=== PATIENT | female | born 1945 ===

== ENCOUNTER 2017-02-10 06:51 | Inpatient (IN) | payer MEDICARE ==
[2017-02-10 07:54] LABS: HEMATOCRIT 42.1 % (36.0-48.0); HEMOGLOBIN 14.6 g/dL (12-16); MCH 33.2 pg (26.0-34.0); MCHC 34.7 g/dL (31.0-37.0); MCV 95.7 fL (80.0-100.0); MEAN PLATELET VOLUME 11.3 fL (7.4-10.4); PLATELET COUNT 251 10x3/uL (130-400); RDW 13.4 % (11.5-14.5); WBC 21.2 10x3/uL (4.8-10.8)
[2017-02-10 08:09] LABS: ALBUMIN 3.5 g/dL (3.4-5.0); ANION GAP 14.6 mmol/L (8-16); BILIRUBIN - TOTAL 0.23 mg/dL (0.2-1.3); CALCIUM 8.8 mg/dL (8.5-10.1); CARBON DIOXIDE 23.4 mmol/L (21.0-32.0); CREATININE - SERUM 0.9 mg/dL (0.6-1.3); PROTEIN - SERUM 7.7 g/dL (6.4-8.2)
[2017-02-10 08:12] LABS: ANISOCYTOSIS OCC; EOSINOPHILS 2 % (0-7); LYMPHOCYTES 12 % (15-50); MONOCYTES 6 % (2-11); NEUTROPHILS 68 % (40-80); PLATELET ESTIMATE NORMAL
--- NOTE | 2017-02-10 12:54 | NUR ---
TRANSFER FROM ER BY STRETCHER. OREINTED TO ROOM. CALL LIGHT IN REACH. WILL CONT. PLAN OF CARE.
[2017-02-10 13:35] VITALS: BP 123/70; BMI 20.6
--- NOTE | 2017-02-10 14:17 | NUR ---
RESTS WITH EYES CLOSED. NO S/S DISCOMFORTS NOTED.
[2017-02-10 16:00] VITALS: BP 101/73
--- NOTE | 2017-02-10 19:37 | NUR ---
DR LUU CALLS TO THE FLOOR, REQUESTS THAT WE MOVE PT TO ICU WITH A SUBARACHNOID BLEED. SPOUSE IN ROOM. DR LUU SPEAKS WITH SPOUSE VIA TELEPHONE TO REPORT CT FINDINGS. DR LUU ORDERS TO STOP TORADOL AND LOVENOX. TRANSFER PT TO ICU - BED RECEIVED FROM [facility] ROOM [address]. [address] TOPETE OR DR WHITESIDE - DR TOPETE CARTON STAMPER AND PAGED. RETURNS CALL. NOTIFIED OF BLEED AND DR TOPETE REQUESTS DR LUU'S NUMBER TO SPEAK WITH HIM. WILL CALL REPORT TO ICU AT THIS TIME AND TRANSFER PT.
[2017-02-10 20:00] VITALS: BP 102/66
--- NOTE | 2017-02-10 20:00 | NUR ---
PT ARRIVED TO ICU AT 1999. V/S HR 94 CONTROLLED A-FIB, BP 102/66, RR 18 SHALLOW, O2 SAT 98% NC 2 L/MIN, TEMP 97.5 ORAL. PT IS ALERT TO PERSON AND PLACE BUT UNABLE TO EXPRESS THE SITUATION AND IS BECOMING MORE LETHARGIC AND CONFUSED ASK I AM ASSESSING. SHE IS ABLE TO FOLLOW COMMANDS BUT GOES BACK TO SLEEPING IMMMEDIATELY. SHE STATES THAT SHE WEARS DENTURES AND GLASSES BUT THEY ARE NOT IN HER POSSESSION AT THIS TIME. PERRLA, 3 MM, BRISK REACTION TO LIGHT. 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 PIV TO R AC INFUSING NS + 20 KCL @ 125 ML/HR. LAB AT BEDSIDE DRAWING CARDIAC ENZYMES AND POTASSIUM. S1S2 AUDIBLE, CONTROLLED A-FIB VIA TELEMETRY. RR IS SHALLOW, CRACKLES HEARD BILAT. ABD IS FLAT, BS ACTIVE X4. SCD'S IN PLACE. AT BEDSIDE. UPDATED HIM ON PT'S STATUS. NO QUESTIONS AT THIS TIME. WILL CONT WITH POC.
--- NOTE | 2017-02-10 20:05 | NUR ---
REPORT TO HALEY. TRANSFER PT WITH HERIBERTO AND VALERY VIA BED WITH NURSES X3. SPOUSE FOLLOWS WITH PT.
--- NOTE | 2017-02-10 21:00 | NUR ---
PIV 22G TO L FOREARM INFUSING KEPPRA.
[2017-02-10 21:25] LABS: CKMB 11.5 U/L (0.0-3.6); CREATINE KINASE 175 UL (21-215)
[2017-02-10 21:40] LABS: TROPONIN-I 1.777 ng/mL (0.000-0.060)
--- NOTE | 2017-02-10 22:08 | NUR ---
EMS ARRIVED IN ICU TO RECIEVE PT. IV FLUIDS TAKEN WITH EMS. VSS. AT BEDSIDE AND TOOK PT'S BELONGINGS.
--- NOTE | 2017-02-24 11:43 | CN ---
PATIENT NAME:KADEN SWIFT MEDICAL RECORD: [id number] : 49 LOCATION:[id number] ADMIT DATE: 02/10/17 ACCOUNT: [id number] CONSULTING PHYSICIAN: ROGER BECKETT MD REFERRING PHYSICIAN: FILIBERTO LUU DO DATE OF CONSULTATION: 02/10/2017 CONSULT REQUESTING PHYSICIAN: Dr. Filiberto Luu. REASON FOR CONSULTATION: Questionable abnormal chest radiograph, febrile illness. HISTORY OF PRESENT ILLNESS: Ms. Swift is a 71-year-old female. The patient is now very lethargic. She is answering yes and no. She is sick for the last 3-4 days. Yesterday in the chair, it was noted the patient very weak and lethargic. The patient has some fever, but there is no associated nausea, vomiting with it. She is complaining of neck pain and also she is complaining headache. REVIEW OF SYSTEMS: Mainly in the history of present illness. PAST MEDICAL HISTORY: 1. Chronic obstructive pulmonary disease. 2. Coronary artery disease. PAST SURGICAL HISTORY: Details not obtainable. ALLERGIES: There is no known drug allergy. PRESENT MEDICATIONS: On [employer] was reviewed. PERSONAL AND SOCIAL HISTORY: The patient is a current everyday smoker. She is a nondrinker. FAMILY HISTORY: Significant for cardiovascular disease. PHYSICAL EXAMINATION: GENERAL: Now, the patient is lying comfortably in bed. She is very lethargic. VITAL SIGNS: The blood pressure 123/70, pulse is 110 to 120 and irregular, respirations 18, temperature is 97.3, SpO2 is 96% on 2 liters nasal cannula. HEENT: Conjunctivae are pink. Sclerae nonicteric. NECK: Supple, no JVD. CHEST: The chest excursion is minimal on both sides. There is no wheeze, no rales. HEART: Rhythm regular, normal sound, no murmur. ABDOMEN: Soft. Bowel sounds present. No hepatosplenomegaly. RECTAL: Deferred. EXTREMITIES: No cyanosis, no clubbing, no pedal edema. SKIN: Warm, normal turgor. CENTRAL NERVOUS SYSTEM: The patient is arousable. She answered yes and no. She is aware. She is in the hospital. There is no obvious cranial nerve abnormality. The gait was not tested. LABORATORY DATA: CBC: The WBC is 21.2, hemoglobin is 14.6, hematocrit 42.1 and platelet count 251. Chemistry: Sodium 138, potassium is 3, chloride is 103, BUN CONSULT REPORT [id number] KADEN SWIFT W is 15, creatinine 0.9, glucose 201. EKG, fast atrial fibrillation with rapid ventricular response. IMAGING: CTA of the chest: There is no PE, no infiltrate, no masses, no nodule. IMPRESSION: 1. Febrile illness. 2. Right hilar prominence on the chest x-ray, clear on the CTA of the chest. 3. Atrial fibrillation with rapid ventricular response. 4. Hypokalemia. 5. Headache, possibly associated with febrile illness, rule out meningitis. RECOMMENDATIONS: 1. We will continue Rocephin. 2. IV fluids. 3. Heart control per Dr. Cabrera. 4. Start her on Xopenex and ipratropium nebulizer. 5. Follow up labs and chest radiograph. 6. Replace potassium. Dr. Luu, thank you for involving me in the care of Ms. Swift. TRANSINT:[id number] Voice Confirmation ID: [id number] DOCUMENT ID: [id number] ROGER BECKETT MD at 1143 CC: FILIBERTO LUU DO [id number] DICTATION DATE: 02/10/17 1542 [place] COOPER: 02/10/172020 DIS IN 02/10/17 [id number] [place] [address]
== END 2017-02-10 22:15 | disposition short-term general hospital (02) | DRG 66 ==
LOC: OBSVTIME → D.ER 06:51 → D.M2 11:36 → OBSVTIME 11:36 → D.M2 11:57 → D.ER 11:57 → D.M2 11:57 → OBSVTIME 11:57 → D.M2 19:34 → D.ICU 20:06
PROVIDERS: Emergency Medicine; ADMIT Family Medicine
DX: I60.9 Nontraumatic subarachnoid hemorrhage, unspecified (principal); M54.2 Cervicalgia; J44.9 Chronic obstructive pulmonary disease, unspecified; I25.10 Atherosclerotic heart disease of native coronary artery without angina pectoris; I10 Essential (primary) hypertension; E78.5 Hyperlipidemia, unspecified; E86.0 Dehydration; E87.6 Hypokalemia; I48.91 Unspecified atrial fibrillation; Z72.0 Tobacco use